=== PATIENT | female | born 1970 | race African-American/Black ===

== ENCOUNTER 2016-12-05 10:30 | Emergency (ER) | payer OTHER, MEDICAID ==
[~2016-12-05] VITALS: Ht 152.4 cm; Wt 62.0 kg
[2016-12-05] MEDS ORDERED: IBUPROFEN 600MG TABLET PO ONE (11:15)
[2016-12-05] MEDS ORDERED: BACITRACIN ZINC OINT UDPKT TOP ONE (11:15)
[2016-12-05 11:32] VITALS: BP 105/51
== END 2016-12-05 12:22 | disposition home or self-care (01) ==
LOC: ER 12:11
DX: S61.211A Laceration without foreign body of left index finger without damage to nail, initial encounter (principal); W01.0XXA Fall on same level from slipping, tripping and stumbling without subsequent striking against object, initial encounter; Y93.89 Activity, other specified; Y99.9 Unspecified external cause status; Y92.89 Other specified places as the place of occurrence of the external cause
CPT/HCPCS: 12001; 99283

== ENCOUNTER 2018-03-22 10:30 | Emergency (ER) | payer OTHER, MEDICAID ==
[~2018-03-22] VITALS: Ht 152.4 cm; Wt 58.0 kg
[2018-03-22 11:10] LABS: BASOPHILS % 0.8 % (0.0-2.0); EOSINOPHILS % 1.1 % (0.0-5.0); HEMATOCRIT. 39.2 % (36.0-48.0); HEMOGLOBIN. 12.9 g/dL (12.0-16.0); LYMPHOCYTES % 26.1 % (20.0-50.0); MEAN CORPUSCULAR HEMOGLOBIN 29.6 pg (28.0-32.0); MEAN PLATELET VOLUME 9.2 fl (7.4-10.4); MONOCYTES % 5.8 % (2.0-8.0); NEUTROPHILS % 66.2 % (40.0-76.0); PLATELET 299 x1000/uL (130-400); RED BLOOD CELL COUNT 4.36 mill/uL (4.2-5.4); RED CELL DISTRIBUTION WIDTH 13.9 % (11.6-14.6)
[2018-03-22 11:17] LABS: CHLORIDE 112 mEq/L (98-107)
[2018-03-22 11:36] LABS: PARTIAL THROMBOPLASTIN TIME 21.7 sec (23.4-31.0); PROTHROMBIN TIME 10.7 sec (9.4-11.6)
[2018-03-22 13:46] LABS: CLARITY URINE CLEAR (CLEAR); COLOR URINE YELLOW (YELLOW); KETONES URINE TRACE (NEGATIVE); LEUKOCYTE ESTERASE URINE NEGATIVE (NEGATIVE); NITRITE URINE NEGATIVE (NEGATIVE); OCCULT BLOOD URINE NEGATIVE (NEGATIVE); PROTEIN URINE NEGATIVE (NEGATIVE); SPECIFIC GRAVITY URINE 1.024 (1.005-1.030)
[2018-03-22] MEDS ORDERED: LORAZEPAM 2MG/ML CPJ IV ONE (14:15)
[2018-03-22 14:19] LABS: *BARBITURATES SCREEN URINE NEGATIVE (NEGATIVE); *BENZODIAZEPINES SCREEN URINE NEGATIVE (NEGATIVE); *COCAINE SCREEN URINE NEGATIVE (NEGATIVE)
[2018-03-22 14:20] LABS: *AMPHETAMINES SCREEN URINE NEGATIVE (NEGATIVE); CANNABINOID URINE SCREEN NEGATIVE (NEGATIVE); METHADONE URINE SCREEN NEGATIVE (NEGATIVE); OPIATES URINE SCREEN NEGATIVE (NEGATIVE); PHENCYCLIDINE URINE SCREEN NEGATIVE (NEGATIVE)
[2018-03-22 14:20] LABS: BG BASE EXCESS -8.3 mmol/L (-2.0-2.0); BG CARBOXYHEMOGLOBIN 0.5 % (0.5-1.5); BG DEOXYHEMOGLOBIN 1.8 % (0.0-5.0); BG FRACTION INSPIRED OXYGEN 21; BG HCO3 ACT 15.7 mmol/L (22.0-26.0); BG METHEMOGLOBIN 0.1 % (0.0-1.5); BG OXYGEN SATURATION 98.2 % (92.0-98.5); BG OXYHEMOGLOBIN 97.6 % (94.0-97.0); BG PCO2 28.4 mmHg (35.0-45.0); BG PO2 120.7 mmHg (75.0-100.0); BG SAMPLE SITE RIGHT BRACHIAL; BG TOTAL HEMOGLOBIN 13.2 g/dL (12.0-18.0); BG VENT MODE ROOM AIR
[2018-03-22] MEDS ORDERED: LORAZEPAM 2MG/ML CPJ IV STA (20:04)
[2018-03-22] MEDS ORDERED: SODIUM CHLORIDE 0.9% 1,000 ML IV STA (20:04)
[2018-03-22] MEDS ORDERED: SODIUM CHLORIDE 0.45% 1,000 ML IV SCH (21:37)
[2018-03-22] MEDS ORDERED: SODIUM CHLORIDE 0.9% INJ 3ML FLUSH IVF SCH (22:00)
[2018-03-23] MEDS ORDERED: MAGNESIUM/ALUMINUM HYDROXIDE/SIMETHICONE 30ML UDC PO PRN (01:52)
[2018-03-23] MEDS ORDERED: ACETAMINOPHEN 325MG TABLET PO PRN (01:52)
[2018-03-23] MEDS ORDERED: ACETAMINOPHEN 650MG SUPP PR PRN (01:52)
[2018-03-23] MEDS ORDERED: ACETAMINOPHEN 650MG/20.3ML UDC GT PRN (01:52)
[2018-03-23] MEDS ORDERED: CLONIDINE 0.1MG TABLET PO PRN (01:53)
[2018-03-23] MEDS ORDERED: DIPHENHYDRAMINE 50MG/ML VIAL IV PRN (01:54)
[2018-03-23] MEDS ORDERED: GUAIFENESIN 200MG/10ML SUGAR FREE UDC PO PRN (01:54)
[2018-03-23] MEDS ORDERED: DOCUSATE SODIUM 100MG CAPSULE PO PRN (01:54)
[2018-03-23] MEDS ORDERED: LORAZEPAM 2MG/ML CPJ IV PRN (01:54)
[2018-03-23] MEDS ORDERED: IPRATROPIUM/ALBUTEROL 0.5-3(2.5)MG/3ML NEB INH PRN (01:54)
[2018-03-23 05:56] LABS: BASOPHILS % 0.6 % (0.0-2.0); EOSINOPHILS % 1.5 % (0.0-5.0); HEMATOCRIT. 38.3 % (36.0-48.0); HEMOGLOBIN. 12.2 g/dL (12.0-16.0); MEAN CORPUSCULAR HEMOGLOBIN 29.7 pg (28.0-32.0); MEAN CORPUSCULAR VOLUME 93.5 fL (81.0-99.0); MONOCYTES % 7.9 % (2.0-8.0); PLATELET 265 x1000/uL (130-400); RED CELL DISTRIBUTION WIDTH 14.5 % (11.6-14.6)
[2018-03-23 06:19] LABS: CHLORIDE 118 mEq/L (98-107)
[2018-03-23 06:26] LABS: LDL CHOLESTEROL 71 mg/dL (5-100)
[2018-03-23 06:28] LABS: HDL CHOLESTEROL 51 mg/dL (40-59)
[2018-03-23 08:00] VITALS: BP 101/72
[2018-03-23] MEDS ORDERED: NA PHOS,M-B/NA PHOS,DI-BA ENEMA 118ML PR PRN (09:00)
[2018-03-23] MEDS ORDERED: FAMOTIDINE 20MG/2ML VIAL IV SCH (09:00)
== END 2018-03-23 09:20 | disposition left against medical advice (07) ==
LOC: ER 11:24 → CANRESERV 03-23 07:10 → ENRESERV 03-23 07:10 → CANBEDREQ 03-23 08:46 → ER 03-23 09:20
DX: R45.1 Restlessness and agitation (principal); T51.1X1A Toxic effect of methanol, accidental (unintentional), initial encounter
CPT/HCPCS: 36415; 36600; 51702; 71045; 80053; 80061; 80305; 80320; 81003; 82310; 82375; 82693; 82805; 83690; 83930; 84484; 85025; 85610; 85730; 93005; 96374; 96376; 99285; G0482; J2060; J7030